=== PATIENT | female | born 1945 | race Two or more races ===

== ENCOUNTER → 2021-09-05 | Emergency (ER) | payer MEDICAID, OTHER ==
[~2021-09-05] VITALS: Ht 147.3 cm; Wt 74.8 kg
[~2021-09-05] MED LIST: LEVO500T31 PO; PRED20TA2 PO; PROM1SOL4 PO; cefTRIAXone SOD 1,000 MG VL IM ONE; cefTRIAXone SOD 1,000 MG VL ONE
[2021-09-05 18:13] VITALS: BP 130/64
== END | disposition home or self-care (01) ==
LOC: ER 16:23
DX: J03.90 Acute tonsillitis, unspecified (principal); J20.9 Acute bronchitis, unspecified
CPT/HCPCS: 71045; 96372; 99283; J0696